=== PATIENT | male | born 1975 | race Caucasian/White ===

== ENCOUNTER 2021-02-07 12:46 | Emergency (ER) | payer MEDICAID, OTHER ==
[~2021-02-07] VITALS: Ht 167.6 cm; Wt 59.0 kg
[2021-02-07 13:06] VITALS: BP 139/77
[2021-02-07] MEDS ORDERED: HYDROcodone-ACET 7.5/325MG TAB PO ONE (15:00)
== END 2021-02-07 18:17 | disposition left against medical advice (07) ==
LOC: ER 12:46
DX: S42.212A Unspecified displaced fracture of surgical neck of left humerus, initial encounter for closed fracture (principal); S42.202A Unspecified fracture of upper end of left humerus, initial encounter for closed fracture; F17.210 Nicotine dependence, cigarettes, uncomplicated; W18.39XA Other fall on same level, initial encounter; Y93.89 Activity, other specified; Y92.89 Other specified places as the place of occurrence of the external cause; Y99.8 Other external cause status
CPT/HCPCS: 73060